=== PATIENT | female | born 1980 | race Caucasian/White ===

== ENCOUNTER 2021-07-31 19:39 | Emergency (ER) | payer OTHER ==
[~2021-07-31] VITALS: Ht 162.6 cm; Wt 108.9 kg
[~2021-07-31 19:39] MED LIST: FAMVIR250 MG PO; NOHOMEMEDICATIONS; PHENERGAN25 MG RE; VITAMIN A DAY1 EACH PO; [UNRECOGNIZED DRUG - CODE] PO
[2021-07-31 20:54] LABS: URINE BILIRUBIN NEGATIVE (Negative); URINE BLOOD 3+ (Negative); URINE CLARITY CLOUDY; URINE COLOR YELLOW; URINE GLUCOSE-RANDOM NEGATIVE (Negative); URINE KETONES NEGATIVE (Negative); URINE LEUKOCYTES-REFLEX TRACE (Negative); URINE NITRITE-REFLEX NEGATIVE (Negative); URINE PROTEIN TRACE (Negative); URINE SPECIFIC GRAVITY >= 1.030 (1.005-1.030); URINE UROBILINOGEN 0.2 E.U./dl (0.2-1.0)
[2021-07-31 20:55] LABS: SQUAMOUS 0-3 Few /LPF (0-3)
[2021-07-31 20:57] LABS: BACTERIA-REFLEX None Seen /HPF (None Seen); CASTS None Seen /LPF (None Seen); CRYSTALS None Seen /LPF (None Seen); URINE RBC >20 Many /HPF (0-2); URINE WBC-REFLEX None Seen /HPF (0-5)
[2021-07-31] MEDS ORDERED: DOXYCYCLINE 10100 MG PO (21:17)
[2021-07-31] MEDS ORDERED: CENTANY30 GM TOP (21:17)
[2021-07-31] MEDS ORDERED: ONDANSETRON ODT4 MG PO (21:17)
[2021-07-31 21:25] VITALS: BP 122/68
== END 2021-07-31 21:25 | disposition home or self-care (01) ==
LOC: M.ERS 19:39
PROVIDERS: Emergency Medicine
DX: L02.33 Carbuncle of buttock (principal); R11.2 Nausea with vomiting, unspecified; R55 Syncope and collapse; Z98.890 Other specified postprocedural states; Z88.0 Allergy status to penicillin

== ENCOUNTER → 2021-09-30 | Outpatient (CLI) | payer OTHER ==
[~2021-09-30] MED LIST changes: +CENTANY30 GM TOP; +DOXYCYCLINE 10100 MG PO; +ONDANSETRON ODT4 MG PO
== END ==
LOC: M.RAD 13:20
PROVIDERS: ATTEND Family Medicine
DX: Z12.31 Encounter for screening mammogram for malignant neoplasm of breast (principal)